=== PATIENT | female | born 1995 | race Hispanic/Latino ===

== ENCOUNTER 2020-10-31 18:01 | Observation (INO) | payer BC, MEDICAID ==
[2020-10-31] MEDS ORDERED: SODIUM CHLORIDE 0.9% 1000 ML 1,000 ML IV ONE ×3 (19:02→23:54)
[2020-10-31 19:36] LABS: Basophils % (Auto) 0.2 % (0.0-1.8); Eosinophils % (Auto) 0.3 % (0.0-4.3); Hematocrit 40.6 % (30.3-42.9); Hemoglobin 13.8 gm/dl (10.1-14.3); Lymphocytes # (Auto) 1.6 K/mm3 (1.2-5.4); Lymphocytes % (Auto) 19.6 % (13.4-35.0); Mean Corpuscular HGB Conc 34 % (30-34); Mean Corpuscular Volume 84 fl (79-97); Monocytes # (Auto) 0.6 K/mm3 (0.0-0.8); Monocytes % (Auto) 7.5 % (0.0-7.3); Platelet Count 265 K/mm3 (140-440); Red Blood Count 4.86 M/mm3 (3.65-5.03); Red Cell Distribution Width 14.1 % (13.2-15.2)
[2020-10-31 19:48] LABS: INR 1.08 (0.87-1.13)
[2020-10-31 19:49] LABS: Partial Thromboplastin Time 28.3 Sec. (24.2-36.6)
[2020-10-31 19:59] LABS: Alanine Aminotransferase 14 units/L (7-56); Albumin 3.8 g/dL (3.9-5); Blood Urea Nitrogen 13 mg/dL (7-17); Calcium 8.7 mg/dL (8.4-10.2); Hemolysis Index 31
--- NOTE | 2020-10-31 20:13 | Emergency Department Report ---
History of Present Illness - General Chief Complaint: Psych Stated Complaint: OVERDOSE Time Seen by Provider: 10/31/20 18:46 Source: EMS Mode of arrival: Ambulatory Limitations: No Limitations - History of Present Illness Initial Comments: 25-year-old female presents to ED following intentional overdose. Patient was found by family members and apparently reported that this was a suicide attempt. 4 empty bottles found. Patient reportedly took medications that were filled on yesterday, 10/30/2020: Seroquel 400 mg x 30 tabs (bottle is empty); Klonopin 1 mg x 30 tabs (bottle is empty); Vraylar 3 mg x 30 tabs (1 tablet remaining); Celexa 40 mg x 30 tabs (bottle is empty). Patient is lethargic. Patient was given Narcan 2 mg by EMS. MD Complaint: intentional overdose -: unknown Intent: suicide attempt How Overdose Was Discovered: other (found by family) Treatments Prior to Arrival: narcan - Related Data Previous Rx's Medication Instructions Recorded Last Taken Type Ondansetron [Zofran Odt] 8 mg PO TID PRN #10 tab.rapdis 01/18/15 Unknown Rx Allergies Allergy/AdvReac Type Severity Reaction Status Date / Time latex AdvReac Itching Verified 08/07/13 15:54 ED Review of Systems ROS: Stated complaint: OVERDOSE Other details as noted in HPI Comment: Unobtainable due to pts medical conditions ED Past Medical Hx - Past Medical History Previous Medical History?: Yes Hx Hypertension: No Hx Diabetes: No Hx Deep Vein Thrombosis: No Hx Renal Disease: No Hx Sickle Cell Disease: No Hx Seizures: No Hx Psychiatric Treatment: Yes (depression) Hx Asthma: No Hx HIV: No Additional medical history: eczema, IV drug abuse - Surgical History Past Surgical History?: No - Social History Smoking Status: Unknown if ever smoked Substance Use Type: Other - Medications Home Medications: Home Medications Medication Instructions Recorded Confirmed Last Taken Type Ondansetron [Zofran Odt] 8 mg PO TID PRN #10 tab.rapdis 01/18/15 Unknown Rx ED Physical Exam - General Limitations: No Limitations General appearance: lethargic - Head Head exam: Present: atraumatic, normocephalic - Eye Eye exam: Present: normal appearance Pupils: Present: other (Pinpoint bilaterally) - ENT ENT exam: Present: mucous membranes moist - Neck Neck exam: Present: normal inspection - Respiratory Respiratory exam: Present: normal lung sounds bilaterally. Absent: respiratory distress - Cardiovascular Cardiovascular Exam: Present: regular rate, normal rhythm - GI/Abdominal GI/Abdominal exam: Present: soft. Absent: distended, tenderness - Extremities Exam Extremities exam: Present: normal inspection - Neurological Exam Neurological exam: Present: other (moves all four extremities; does not follow commands; mumbles a few words such as "Leave me alone") - Skin Skin exam: Present: warm, dry, intact, normal color ED Course Vital Signs 10/31/20 10/31/20 10/31/20 18:38 19:00 19:15 Temperature 98.7 F Pulse Rate 88 83 79 Respiratory 18 11 L 12 Rate Blood Pressure 126/66 95/53 Blood Pressure 128/66 [Right] O2 Sat by Pulse 99 100 100 Oximetry 10/31/20 10/31/20 10/31/20 19:31 19:45 20:00 Temperature Pulse Rate 85 82 81 Respiratory 14 12 12 Rate Blood Pressure 106/74 95/53 98/64 Blood Pressure [Right] O2 Sat by Pulse 100 100 100 Oximetry 10/31/20 10/31/20 10/31/20 20:23 20:31 20:45 Temperature Pulse Rate 83 82 Respiratory 12 14 Rate Blood Pressure 98/64 98/64 98/64 Blood Pressure [Right] O2 Sat by Pulse 100 100 100 Oximetry 10/31/20 10/31/20 10/31/20 21:00 21:15 21:31 Temperature Pulse Rate 79 79 81 Respiratory 11 L 16 12 Rate Blood Pressure 101/62 101/62 88/57 Blood Pressure [Right] O2 Sat by Pulse 100 100 100 Oximetry 10/31/20 10/31/20 10/31/20 21:38 21:45 22:00 Temperature 97.3 F L Pulse Rate 79 79 Respiratory 12 12 Rate Blood Pressure 93/54 93/55 Blood Pressure [Right] O2 Sat by Pulse 100 100 Oximetry 10/31/20 10/31/20 10/31/20 22:12 22:15 22:31 Temperature 97.1 F L Pulse Rate 77 77 Respiratory 12 12 Rate Blood Pressure 93/55 88/56 Blood Pressure [Right] O2 Sat by Pulse 100 100 Oximetry 10/31/20 10/31/20 10/31/20 22:45 22:48 23:00 Temperature 97.3 F L Pulse Rate 76 77 Respiratory 11 L 12 Rate Blood Pressure 99/62 95/64 Blood Pressure [Right] O2 Sat by Pulse 100 100 Oximetry 10/31/20 10/31/20 10/31/20 23:15 23:40 23:45 Temperature Pulse Rate 81 81 81 Respiratory 12 11 L 12 Rate Blood Pressure 95/64 100/58 100/58 Blood Pressure [Right] O2 Sat by Pulse 100 100 100 Oximetry - Consultations Consultation #1: 10/31/20 21:15 Poison Control recs: - IV fluids - EKG in 2 hrs; if QRS 110s, may need 1 amp bicarb; want QRS < 100 - add mag level (2.0 is ideal) - temps are important; can develop Serotonin syndrome (temp 1st indication--- if so, fluids and benzos) 10/31/20 23:46 Updated Poison Control magnesium level and repeat EKG 12 hr obs for Vraylar; 8 hr obs for rest of meds that were taken Pt will be medically clear at 6AM ED Medical Decision Making - Lab Data Result diagrams: 10/31/20 19:02 10/31/20 19:02 - EKG Data -: EKG Interpreted by Me EKG shows normal: sinus rhythm, axis, QRS complexes, ST-T waves Rate: normal - EKG Data Interpretation: no acute changes - Radiology Data Radiology results: report reviewed, image reviewed - Medical Decision Making 25-year-old female presents to ED following reported intentional overdose with 4 of her own psychiatric medications. Patient lethargic and encephalopathic thro ughout ED stay. Unable to obtain a clear story from her of what happened. Poison Control was consulted. Labs and EKGs are within normal limits. Temperatures have been taken regularly to monitor for signs of serotonin syndrome. Patient remains afebrile. She requires 12 hours observation from the time she arrived in the ED. Because her mental status is still not at baseline, will admit the patient for observation to hospitalist, Dr. Wharton, for further management. Patient has been placed on a 1013 and mental health assessment has been ordered. Critical Care Time: Yes Critical care time in (mins) excluding proc time.: 35 Critical care attestation.: If time is entered above; I have spent that time in minutes in the direct care of this critically ill patient, excluding procedure time. Critical Care Time: 35 min ED Disposition Clinical Impression: Overdose, Acute encephalopathy Disposition: OP ADMIT IP TO THIS HOSP Is pt being admited?: Yes Condition: Stable Referrals: PRIMARY CARE, [Primary Care Provider] - 3-5 Days Time of Disposition: 00:38
[2020-10-31 20:34] LABS: BUN/Creatinine Ratio 22; Bilirubin,Direct < 0.2 mg/dL (0-0.2)
--- NOTE | 2020-10-31 20:37 | Cat Scan Report ---
CT head/brain wo con INDICATION / CLINICAL INFORMATION: 25 years Female; AMS. TECHNIQUE: Routine CT head without contrast. All CT scans at this location are performed using CT dos e reduction for ALARA by means of automated exposure control. COMPARISON: None. FINDINGS: BRAIN / INTRACRANIAL CONTENTS: The brain parenchyma appears to demonstrate appropriate attenuation. T he ventricular system is within normal limits in size and configuration. There is no clear CT ends of acute intracranial hemorrhage or significant mass effect at. ORBITS: No significant abnormality of visualized orbits. SINUSES / MASTOIDS: No significant abnormality in the visualized paranasal sinuses or mastoid air pastora ls. CRANIOCERVICAL JUNCTION: No significant abnormality. ADDITIONAL FINDINGS: None. IMPRESSION: 1. There is no CT evidence of acute intracranial process. Signer Name: Hong Rios MD Signed: 10/31/2020 8:33 PM Workstation Name: [id number]
[2020-10-31 21:39] LABS: Bacteria,Urine 4+ /HPF (Negative); Bilirubin,Urine NEG (Negative); Blood,Urine LG (Negative); Color,Urine Yellow (Yellow); Mucus,Urine 1+ /HPF; Protein,Urine <15 mg/dL mg/dL (Negative); Urobilinogen,Urine < 2.0 mg/dL (<2.0)
[2020-10-31 21:48] LABS: Benzodiazepines Screen,Urine Negative; Cannabinoid Screen,Urine Negative; Cocaine Screen,Urine Negative; Methadone Screen,Urine Negative; Opiate Screen,Urine Negative
[2020-10-31 22:12] LABS: Amphetamine Screen,Urine PRESUMPTIVE POSITIVE
[2020-11-01] MEDS ORDERED: ONDANSETRON 4 MG/2 ML INJ IV PRN (01:07)
[2020-11-01] MEDS ORDERED: ACETAMINOPHEN 325 MG TAB PO PRN (01:07)
--- NOTE | 2020-11-01 01:21 | History and Physical Report ---
History of Present Illness Date of examination: 11/01/20 Date of admission: 11/01/2020 Chief complaint: Drug overdose History of present illness: 55-year-old white female with known history of depression was brought into the emergency room today with intentional overdose of medications. Patient was found with 4 empty bottles of recently filled medications which included Seroquel 400 mg, Klonopin 1 mg,Vraylar 3 mg, Celexa 40 mg all of which were for 30-day supply. Patient was found to be lethargic and appeared confused. She was said to have been given 2 mg of Narcan by EMS. Most of the history was gotten from the ER staff as patient was unable to provide any history at this time. Poison control was consulted by the ER physician. Recommendation was to monitor patient closely for at least 12 hours and continue on IV fluids. Work-up today, urine drug screen was positive for antiphentermine. EKG and CT scan of the head was unremarkable. Patient is being admitted for intentional drug overdose. She has also been placed on 1013. Past History Past Medical History: other (Depression) Past Surgical History: Other (Unknown) Social history: IV drug use Family history: other (Unknown) Medications and Allergies Allergies Allergy/AdvReac Type Severity Reaction Status Date / Time latex AdvReac Itching Verified 08/07/13 15:54 Home Medications Medication Instructions Recorded Confirmed Last Taken Type Ondansetron [Zofran Odt] 8 mg PO TID PRN #10 tab.rapdis 01/18/15 Unknown Rx Active Meds: Active Medications Acetaminophen (Acetaminophen 325 Mg Tab) 650 mg PO Q4H PRN PRN Reason: Pain MILD(1-3)/Fever >100.5/PATEL Sodium Chloride (Nacl 0.9% 1000 Ml) 1,000 mls @ 125 mls/hr IV DIRECT KADE Ondansetron HCl (Ondansetron 4 Mg/2 Ml Inj) 4 mg IV Q8H PRN PRN Reason: Nausea And Vomiting Sodium Chloride (Sodium Chloride 0.9% 10 Ml Flush Syringe) 10 ml IV BID KADE Sodium Chloride (Sodium Chloride 0.9% 10 Ml Flush Syringe) 10 ml IV PRN PRN PRN Reason: LINE FLUSH Review of Systems ROS unobtainable: due to mental status Exam - Constitutional Vitals: Temp Pulse Resp BP Pulse Ox 97.3 F L 81 12 100/58 100 10/31/20 22:48 10/31/20 23:45 10/31/20 23:45 10/31/20 23:45 10/31/20 23:45 General appearance: Present: no acute distress, well-nourished - EENT Eyes: Present: PERRL, EOM intact. Absent: scleral icterus ENT: clear oral mucosa, dentition normal (11) Results - Labs CBC & Chem 7: 10/31/20 19:02 10/31/20 19:02 Labs: Abnormal lab results 10/31/20 10/31/20 10/31/20 Range/Units 19:02 19:02 Unknown [place] % (Auto) 7.5 H (0.0-7.3) % Seg Neutrophils % 72.4 H (40.0-70.0) % Albumin 3.8 L (3.9-5) g/dL Salicylates < 0.3 L (2.8-20.0) mg/dL Acetaminophen (10.0-30.0) ug/mL 10/31/20 Range/Units Unknown [place] % (Auto) (0.0-7.3) % Seg Neutrophils % (40.0-70.0) % Albumin (3.9-5) g/dL Salicylates (2.8-20.0) mg/dL Acetaminophen 5.0 L (10.0-30.0) ug/mL Assessment and Plan - Patient Problems (1) Overdose Current Visit: Yes Status: Acute Plan to address problem: Patient has taken recently filled medications which included Seroquel, Klonopin, Celexa and Vraylar. We will monitor patient closely. Patient has known history of depression. We will place consult to mental health for evaluation. (2) Acute encephalopathy Current Visit: Yes Status: Acute Plan to address problem: Secondary to drug overdose. Will monitor mental status. (3) DVT prophylaxis Current Visit: Yes Status: Acute Plan to address problem: We will place patient on subcutaneous Lovenox. (4) Full code status Current Visit: Yes Status: Acute Plan to address problem: Patient is a full code.
[2020-11-01] MEDS: SODIUM CHLORIDE 0.9% 1000 ML 1,000 ML IV SCH (04:20)
--- NOTE | 2020-11-01 08:58 | Consultation ---
History of Present Illness - Reason for Consult Consult date: 11/01/20 Reason for consult: MHE Requesting physician: TEE HOLLEY - Chief Complaint Chief complaint: Drug overdose - History of Present Psychiatric Illness Per ED Provider: 25-year-old female presents to ED following intentional overdose. Patient was found by family members and apparently reported that this was a suicide attempt. 4 empty bottles found. Patient reportedly took medications that were filled on yesterday, 10/30/2020: Seroquel 400 mg x 30 tabs (bottle is empty); Klonopin 1 mg x 30 tabs (bottle is empty); Vraylar 3 mg x 30 tabs (1 tablet remaining); Celexa 40 mg x 30 tabs (bottle is empty). Patient is lethargic. Patient was given Narcan 2 mg by EMS. PSYCH HPI Patient presented to the ED with chief complaint of overdose due to suicidal attempt. Patient overdose on all of her medication that was recently filled on of this month. Patient appears completely somnolent and sedated, unable to respond to verbal or physical stimuli at this moment. PAST PSYCHIATRIC HISTORY Diagnoses:n/a Suicide attempts or Self-harm behavior: n/a Prior psychiatric hospitalizations: n/a Substance Abuse history: n/a Previous psychiatric medications tried: yes, in hpi Outpatient treatment: n/a PAST MEDICAL HISTORY:n/a Family Psychiatric History: None reported or documented SOCIAL HISTORY Marital Status:n/a Living Arrangements:n/a Employment Status:n/a Access to guns/weapons: n/a Education: n/a History of Abuse:n/a Legal History: n/a REVIEW OF SYSTEMS ROS cannot be reliably obtained from the patient due to her menttal status MENTAL STATUS EXAMINATION unable to conduct due to mental status Diagnoses: Assessment and Plan - Psychiatric problem (1) Overdose Current Visit: Yes Status: Acute Treatment Plan No medications. MEDICATIONS: Risks, benefits and alternatives of medications discussed with the patient, questions answered and consent obtained from patient. PSYCHOTHERAPY: Supportive psychotherapy provided MEDICAL: Per primary team DELIRIUM PRECAUTIONS: Please re-orient patient frequently, keep lights on during the day, and minimize benzodiazepines and opiates as these medications could worsen patient's confusion. 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 Will attemtp again tomorow. LEGAL STATUS: 1013 FOLLOW-UP: Will follow Thank you for the consult. Please contact with any questions and/or concerns. Medications and Allergies Allergies Allergy/AdvReac Type Severity Reaction Status Date / Time latex AdvReac Itching Verified 08/07/13 15:54 Home Medications Medication Instructions Recorded Confirmed Last Taken Type Ondansetron [Zofran Odt] 8 mg PO TID PRN #10 tab.rapdis 01/18/15 Unknown Rx Active Meds: Active Medications Acetaminophen (Acetaminophen 325 Mg Tab) 650 mg PO Q4H PRN PRN Reason: Pain MILD(1-3)/Fever >100.5/PATEL Enoxaparin Sodium (Enoxaparin 40 Mg/0.4 Ml Inj) 40 mg SUB-Q QDAY@2200 KADE; Protocol Sodium Chloride (Nacl 0.9% 1000 Ml) 1,000 mls @ 125 mls/hr IV DIRECT KADE Last Admin: 11/01/20 04:20 Dose: 125 mls/hr Documented by: Ondansetron HCl (Ondansetron 4 Mg/2 Ml Inj) 4 mg IV Q8H PRN PRN Reason: Nausea And Vomiting Sodium Chloride (Sodium Chloride 0.9% 10 Ml Flush Syringe) 10 ml IV BID KADE Sodium Chloride (Sodium Chloride 0.9% 10 Ml Flush Syringe) 10 ml IV PRN PRN PRN Reason: LINE FLUSH Mental Status Exam - Vital signs Last Vital Signs Temp 96.1 F L 11/01/20 05:14 Pulse 77 11/01/20 06:15 Resp 12 11/01/20 06:15 BP 104/66 11/01/20 06:15 Pulse Ox 100 11/01/20 06:15 Results Result Diagrams: 10/31/20 19:02 10/31/20 19:02 Abnormal lab results 10/31/20 10/31/20 10/31/20 Range/Units 19:02 19:02 Unknown [place] % (Auto) 7.5 H (0.0-7.3) % Seg Neutrophils % 72.4 H (40.0-70.0) % Albumin 3.8 L (3.9-5) g/dL Salicylates < 0.3 L (2.8-20.0) mg/dL Acetaminophen (10.0-30.0) ug/mL 10/31/20 Range/Units Unknown [place] % (Auto) (0.0-7.3) % Seg Neutrophils % (40.0-70.0) % Albumin (3.9-5) g/dL Salicylates (2.8-20.0) mg/dL Acetaminophen 5.0 L (10.0-30.0) ug/mL All other labs normal. Assessment and Plan - Psychiatric problem (1) Overdose Current Visit: Yes Status: Acute
--- NOTE | 2020-11-01 11:33 | Event Note ---
Date: 11/01/20 Patient remains very lethargic although awakens and falls right back to sleep. Remains on restraints. Oxygen saturation is intact and appropriate.
[2020-11-02 05:35] LABS: Basophils % (Auto) 0.1 % (0.0-1.8); Eosinophils % (Auto) 0.2 % (0.0-4.3); Hematocrit 40.5 % (30.3-42.9); Hemoglobin 13.6 gm/dl (10.1-14.3); Lymphocytes # (Auto) 1.5 K/mm3 (1.2-5.4); Lymphocytes % (Auto) 8.1 % (13.4-35.0); Mean Corpuscular HGB Conc 34 % (30-34); Mean Corpuscular Volume 85 fl (79-97); Monocytes % (Auto) 5.4 % (0.0-7.3); Platelet Count 273 K/mm3 (140-440); Red Blood Count 4.79 M/mm3 (3.65-5.03); Red Cell Distribution Width 14.4 % (13.2-15.2)
[2020-11-02 05:40] LABS: INR 1.23 (0.87-1.13)
[2020-11-02 06:13] LABS: BUN/Creatinine Ratio 14; Blood Urea Nitrogen 10 mg/dL (7-17); Hemolysis Index 2
--- NOTE | 2020-11-02 07:34 | Progress Note ---
Assessment and Plan Assessment and plan: 25-year-old white female with known history of depression was brought into the emergency room today with intentional overdose of medications. Patient was found with 4 empty bottles of recently filled medications which included Seroquel 400 mg, Klonopin 1 mg,Vraylar 3 mg, Celexa 40 mg all of which were for 30-day supply. Patient was found to be lethargic and appeared confused. She was said to have been given 2 mg of Narcan by EMS. Most of the history was gotten from the ER staff as patient was unable to provide any history at this time. Poison control was consulted by the ER physician. Recommendation was to monitor patient closely for at least 12 hours and continue on IV fluids. Work-up today, urine drug screen was positive for amphentermine. EKG and CT scan of the head was unremarkable. Patient is being admitted for intentional drug overdose. She has also been placed on 1013. 11/02: Leukocytosis noted. Unknown etiology, ? reactive. Patient also was noted to be Hypothermic, but likely due to being on the Hallway, Warm blanket. Will repeat CBC and await clearance from Psych. Medically she will be cleared for discharge if CBC shows improving Leukocytosis. No clear evidence of aspiration. Hypoglycemia: Encouraged to eat. Monitor. Overdose Current Visit: Yes Status: Acute Plan to address problem: Patient has taken recently filled medications which included Seroquel, Klonopin, Celexa and Vraylar. We will monitor patient closely. Patient has known history of depression. We will place consult to mental health for evaluation. Acute Metabolic Encephalopathy Current Visit: Yes Status: Acute Plan to address problem: Secondary to drug overdose. Will monitor mental status. DVT prophylaxis Current Visit: Yes Status: Acute Plan to address problem: We will place patient on subcutaneous Lovenox. Full code status Current Visit: Yes Status: Acute Plan to address problem: Patient is a full code. History Interval history: Patient seen and examined, no acute distress reported. Awakens on verbal stimuli. Hospitalist Physical - Constitutional Vitals: Temp Pulse Resp BP Pulse Ox 96.1 F L 77 12 104/66 100 11/01/20 05:14 11/01/20 06:15 11/01/20 06:15 11/01/20 06:15 11/01/20 06:15 General appearance: Present: no acute distress, well-nourished - EENT Eyes: Present: PERRL, EOM intact ENT: hearing intact, other (LIP RING IN PLACE) - Neck Neck: Present: supple, normal ROM - Respiratory Respiratory effort: normal Respiratory: bilateral: CTA - Cardiovascular Rhythm: regular Heart Sounds: Present: S1 & S2 - Extremities Extremities: no ischemia, pulses intact, pulses symmetrical, No edema, normal temperature, normal color, Full ROM Peripheral Pulses: within normal limits - Abdominal General gastrointestinal: soft, non-tender, non-distended, normal bowel sounds - Integumentary Integumentary: Present: warm (MULTIPLE TATTOOS) - Psychiatric Psychiatric: appropriate mood/affect, memory intact, cooperative - Neurologic Neurologic: CNII-XII intact, moves all extremities, gait normal Results - Labs CBC & Chem 7: 11/02/20 04:39 11/02/20 04:39 Labs: Laboratory Last Values WBC 18.0 K/mm3 (4.5-11.0) H 11/02/20 04:39 RBC 4.79 M/mm3 (3.65-5.03) 11/02/20 04:39 Hgb 13.6 gm/dl (10.1-14.3) 11/02/20 04:39 Hct 40.5 % (30.3-42.9) 11/02/20 04:39 MCV 85 fl (79-97) 11/02/20 04:39 MCH 28 pg (28-32) 11/02/20 04:39 MCHC 34 % (30-34) 11/02/20 04:39 RDW 14.4 % (13.2-15.2) 11/02/20 04:39 Plt Count 273 K/mm3 (140-440) 11/02/20 04:39 Lymph % (Auto) 8.1 % (13.4-35.0) L 11/02/20 04:39 [place] % (Auto) 5.4 % (0.0-7.3) 11/02/20 04:39 Eos % (Auto) 0.2 % (0.0-4.3) 11/02/20 04:39 Baso % (Auto) 0.1 % (0.0-1.8) 11/02/20 04:39 Lymph # (Auto) 1.5 K/mm3 (1.2-5.4) 11/02/20 04:39 [place] # (Auto) 1.0 K/mm3 (0.0-0.8) H 11/02/20 04:39 Eos # (Auto) 0.0 K/mm3 (0.0-0.4) 11/02/20 04:39 Baso # (Auto) 0.0 K/mm3 (0.0-0.1) 11/02/20 04:39 Seg Neutrophils % 86.2 % (40.0-70.0) H 11/02/20 04:39 Seg Neutrophils # 15.5 K/mm3 (1.8-7.7) H 11/02/20 04:39 PT 15.5 Sec. (12.2-14.9) H 11/02/20 04:39 INR 1.23 (0.87-1.13) H 11/02/20 04:39 APTT 28.3 Sec. (24.2-36.6) 10/31/20 19:02 Sodium 144 mmol/L (137-145) 11/02/20 04:39 Potassium 4.0 mmol/L (3.6-5.0) 11/02/20 04:39 Chloride 109.6 mmol/L (98-107) H 11/02/20 04:39 Carbon Dioxide 19 mmol/L (22-30) L 11/02/20 04:39 Anion Gap 19 mmol/L 11/02/20 04:39 BUN 10 mg/dL (7-17) 11/02/20 04:39 Creatinine 0.7 mg/dL (0.6-1.2) 11/02/20 04:39 Estimated GFR > 60 ml/min 11/02/20 04:39 BUN/Creatinine Ratio 14 % 11/02/20 04:39 Glucose 64 mg/dL (65-100) L 11/02/20 04:39 Calcium 9.0 mg/dL (8.4-10.2) 11/02/20 04:39 Magnesium 2.00 mg/dL (1.7-2.3) 10/31/20 Unknown Total Bilirubin 0.20 mg/dL (0.1-1.2) 10/31/20 19:02 Direct Bilirubin < 0.2 mg/dL (0-0.2) 10/31/20 19:02 Indirect Bilirubin 0.0 mg/dL 10/31/20 19:02 AST 16 units/L (5-40) 10/31/20 19:02 ALT 14 units/L (7-56) 10/31/20 19:02 Alkaline Phosphatase 53 units/L (35-129) 10/31/20 19:02 Total Protein 6.7 g/dL (6.3-8.2) 10/31/20 19:02 Albumin 3.8 g/dL (3.9-5) L 10/31/20 19:02 Albumin/Globulin Ratio 1.3 % 10/31/20 19:02 HCG, Qual Negative (Negative) 10/31/20 Unknown Urine Color Yellow (Yellow) 10/31/20 Unknown Urine Turbidity Slightly-cloudy (Clear) 10/31/20 Unknown Urine pH 6.0 (5.0-7.0) 10/31/20 Unknown Ur Specific [place] 1.013 (1.003-1.030) 10/31/20 Unknown Urine Protein <15 mg/dl mg/dL (Negative) 10/31/20 Unknown Urine Glucose (UA) Neg mg/dL (Negative) 10/31/20 Unknown Urine Ketones 20 mg/dL (Negative) 10/31/20 Unknown Urine Blood Lg (Negative) 10/31/20 Unknown Urine Nitrite Neg (Negative) 10/31/20 Unknown Urine Bilirubin Neg (Negative) 10/31/20 Unknown Urine Urobilinogen < 2.0 mg/dL (<2.0) 10/31/20 Unknown Ur Leukocyte Esterase Neg (Negative) 10/31/20 Unknown Urine WBC (Auto) 2.0 /HPF (0.0-6.0) 10/31/20 Unknown Urine RBC (Auto) 32.0 /HPF (0.0-6.0) 10/31/20 Unknown U Epithel Cells (Auto) < 1.0 /HPF (0-13.0) 10/31/20 Unknown Urine Bacteria (Auto) 4+ /HPF (Negative) 10/31/20 Unknown Urine Mucus 1+ /HPF 10/31/20 Unknown Salicylates < 0.3 mg/dL (2.8-20.0) L 10/31/20 Unknown Urine Opiates Screen Negative 10/31/20 Unknown Urine Methadone Screen Negative 10/31/20 Unknown Acetaminophen 5.0 ug/mL (10.0-30.0) L 10/31/20 Unknown Ur Barbiturates Screen Negative 10/31/20 Unknown Ur Phencyclidine Scrn Negative 10/31/20 Unknown Ur Amphetamines Screen Presumptive positive 10/31/20 Unknown U Benzodiazepines Scrn Negative 10/31/20 Unknown Urine Cocaine Screen Negative 10/31/20 Unknown U Marijuana (THC) Screen Negative 10/31/20 Unknown Drugs of Abuse Note Disclamer 10/31/20 Unknown Plasma/Serum Alcohol < 0.01 % (0-0.07) 10/31/20 Unknown [place]/IV: IV Catheter Type [Left INT / Saline Lock Antecubital] Active Medications - Current Medications Current Medications: Generic Name Dose Route Start Last Admin Trade Name Freq PRN Reason Stop Dose Admin Acetaminophen 650 mg 11/01/20 01:07 Acetaminophen 325 Mg Tab PO Q4H PRN Pain MILD(1-3)/Fever >100.5/PATEL Enoxaparin Sodium 40 mg 11/01/20 22:00 Enoxaparin 40 Mg/0.4 Ml Inj SUB-Q QDAY@2200 KADE Protocol Sodium Chloride 1,000 mls @ 125 mls/hr 11/01/20 01:15 11/01/20 04:20 Nacl 0.9% 1000 Ml IV 125 mls/hr DIRECT KADE Administration Ondansetron HCl 4 mg 11/01/20 01:07 Ondansetron 4 Mg/2 Ml Inj IV Q8H PRN Nausea And Vomiting Sodium Chloride 10 ml 11/01/20 10:00 11/01/20 11:25 Sodium Chloride 0.9% 10 Ml Flush Syringe IV 10 ml BID KADE Administration Sodium Chloride 10 ml 11/01/20 01:07 Sodium Chloride 0.9% 10 Ml Flush Syringe IV PRN PRN LINE FLUSH
--- NOTE | 2020-11-02 12:04 | Consultation ---
History of Present Illness - Reason for Consult Consult date: 11/02/20 Reason for consult: MHE Requesting physician: CHICO FERNANDEZ - Chief Complaint Chief complaint: Drug overdose - History of Present Psychiatric Illness Per ED Provider: 25-year-old female presents to ED following intentional overdose. Patient was found by family members and apparently reported that this was a suicide attempt. 4 empty bottles found. Patient reportedly took medications that were filled on yesterday, 10/30/2020: Seroquel 400 mg x 30 tabs (bottle is empty); Klonopin 1 mg x 30 tabs (bottle is empty); Vraylar 3 mg x 30 tabs (1 tablet remaining); Celexa 40 mg x 30 tabs (bottle is empty). Patient is lethargic. Patient was given Narcan 2 mg by EMS. PSYCH HPI Patient presented to the ED with chief complaint of overdose due to suicidal attempt. Patient overdose on all of her medication that was recently filled on of this month. Attempt was made yesterday to see patient per patient was severely sedated, patient was seen today in the hallway. Patient reports she was being very depressed lately, has been going to a lot of financial issues, lots of trouble with finances, and also report relationship issues which she attributes 100% as her own fault and felt that no one was listening to her so she did this in an attempt to get the intention. Patient reports she has mom and siblings in the [facility], her dad is late, and on the day of incident, she was at home with her boyfriend, mom and kids also used meth on the day of incident. Patient reports feeling sleepy, and regretful after hearing what she had done, she is alert and oriented to hospital but she did not know which hospital she was until I told her. PAST PSYCHIATRIC HISTORY Diagnoses: Major depression, anxiety and PTSD Suicide attempts or Self-harm behavior: Yes Prior psychiatric hospitalizations: Yes Substance Abuse history: Meth, and marijuana Previous psychiatric medications tried: yes, in hpi Outpatient treatment: By primary care provider none psychiatry PAST MEDICAL HISTORY: None reported Family Psychiatric History: None reported or documented SOCIAL HISTORY Marital Status: Single Living Arrangements: rent Employment Status: Employed Access to guns/weapons: None report Education: High school ninth grade History of Abuse: None reported Legal History: yes MENTAL STATUS EXAMINATION General Appearance and Behavior: Age appropriate, good hygiene, wearing appropriate clothes,, good eye contact Cooperation: Participating/engaged, but Guarded Psychomotor Behavior: Psychomotor normal Mood: depressed Affect and affective range: flat Thought Content: hopelessness, helplessness Speech: Normal rate, volume and rythm Intellectual Functioning: Average Suicidal Ideation: SI Homicidal Ideation: Denies HI Impulse Control: Impaired Insight and Judgment: Limited insight and judgment Memory: Normal Attention: Normal Orientation: Alert, oriented Assessment and Plan - Psychiatric problem (1) Overdose Current Visit: Yes Status: Acute (2) MDD (major depressive disorder) Current Visit: Yes Status: Acute Treatment Plan No medications. MEDICATIONS: Risks, benefits and alternatives of medications discussed with the patient, questions answered and consent obtained from patient. PSYCHOTHERAPY: Supportive psychotherapy provided MEDICAL: Per primary team DELIRIUM PRECAUTIONS: Please re-orient patient frequently, keep lights on during the day, and minimize benzodiazepines and opiates as these medications could worsen patient's confusion. BILLING CLINICIAN: DISPOSITION: Do Recommend acute inpatient psychiatric hospitalization at this time. Will attemtp again tomorow. LEGAL STATUS: 1013 FOLLOW-UP: Will follow Thank you for the consult. Please contact with any questions and/or concerns. Medications and Allergies Allergies Allergy/AdvReac Type Severity Reaction Status Date / Time latex AdvReac Itching Verified 08/07/13 15:54 Home Medications Medication Instructions Recorded Confirmed Last Taken Type Ondansetron [Zofran Odt] 8 mg PO TID PRN #10 tab.rapdis 01/18/15 Unknown Rx Active Meds: Active Medications Acetaminophen (Acetaminophen 325 Mg Tab) 650 mg PO Q4H PRN PRN Reason: Pain MILD(1-3)/Fever >100.5/PATEL Enoxaparin Sodium (Enoxaparin 40 Mg/0.4 Ml Inj) 40 mg SUB-Q QDAY@2200 KADE; Protocol Sodium Chloride (Nacl 0.9% 1000 Ml) 1,000 mls @ 125 mls/hr IV DIRECT KADE Last Admin: 11/01/20 04:20 Dose: 125 mls/hr Documented by: Ondansetron HCl (Ondansetron 4 Mg/2 Ml Inj) 4 mg IV Q8H PRN PRN Reason: Nausea And Vomiting Sodium Chloride (Sodium Chloride 0.9% 10 Ml Flush Syringe) 10 ml IV BID KADE Last Admin: 11/01/20 11:25 Dose: 10 ml Documented by: Sodium Chloride (Sodium Chloride 0.9% 10 Ml Flush Syringe) 10 ml IV PRN PRN PRN Reason: LINE FLUSH Mental Status Exam - Vital signs Last Vital Signs Temp 96.1 F L 11/01/20 05:14 Pulse 77 11/01/20 06:15 Resp 12 11/01/20 06:15 BP 104/66 11/01/20 06:15 Pulse Ox 100 11/01/20 06:15 Results Result Diagrams: 11/02/20 04:39 11/02/20 04:39 Abnormal lab results 11/02/20 11/02/20 11/02/20 Range/Units 04:39 04:39 04:39 WBC 18.0 H (4.5-11.0) K/mm3 Lymph % (Auto) 8.1 L (13.4-35.0) % [place] # (Auto) 1.0 H (0.0-0.8) K/mm3 Seg Neutrophils % 86.2 H (40.0-70.0) % Seg Neutrophils # 15.5 H (1.8-7.7) K/mm3 PT 15.5 H (12.2-14.9) Sec. INR 1.23 H (0.87-1.13) Chloride 109.6 H (98-107) mmol/L Carbon Dioxide 19 L (22-30) mmol/L Glucose 64 L (65-100) mg/dL All other labs normal. Assessment and Plan - Psychiatric problem (1) Overdose Current Visit: Yes Status: Acute (2) MDD (major depressive disorder) Current Visit: Yes Status: Acute
[2020-11-02 12:12] LABS: Basophils % (Auto) 0.1 % (0.0-1.8); Eosinophils # (Auto) 0.2 K/mm3 (0.0-0.4); Eosinophils % (Auto) 1.5 % (0.0-4.3); Hematocrit 40.3 % (30.3-42.9); Hemoglobin 13.4 gm/dl (10.1-14.3); Lymphocytes # (Auto) 2.1 K/mm3 (1.2-5.4); Lymphocytes % (Auto) 14.7 % (13.4-35.0); Mean Corpuscular HGB Conc 33 % (30-34); Mean Corpuscular Volume 84 fl (79-97); Monocytes # (Auto) 0.9 K/mm3 (0.0-0.8); Monocytes % (Auto) 6.1 % (0.0-7.3); Platelet Count 271 K/mm3 (140-440); Red Blood Count 4.79 M/mm3 (3.65-5.03); Red Cell Distribution Width 14.1 % (13.2-15.2)
[2020-11-03] MEDS: ENOXAPARIN 40 MG/0.4 ML INJ SUB-Q SCH ×4 (01:31→21:52)
[2020-11-03] MEDS: SODIUM CHLORIDE 0.9% 1000 ML 1,000 ML IV SCH ×2 (01:33→21:51)
[2020-11-03 06:34] LABS: Hematocrit 39.4 % (30.3-42.9); Mean Corpuscular HGB Conc 33 % (30-34); Mean Corpuscular Volume 83 fl (79-97); Platelet Count 293 K/mm3 (140-440); Red Blood Count 4.75 M/mm3 (3.65-5.03); Red Cell Distribution Width 14.3 % (13.2-15.2)
[2020-11-03 06:42] LABS: Blood Urea Nitrogen 7 mg/dL (7-17); Calcium 8.3 mg/dL (8.4-10.2); Hemolysis Index 11
[2020-11-03 06:43] LABS: BUN/Creatinine Ratio 14
--- NOTE | 2020-11-03 10:05 | Progress Note ---
Assessment and Plan Assessment and plan: 25-year-old white female with known history of depression was brought into the emergency room today with intentional overdose of medications. Patient was found with 4 empty bottles of recently filled medications which included Seroquel 400 mg, Klonopin 1 mg,Vraylar 3 mg, Celexa 40 mg all of which were for 30-day supply. Patient was found to be lethargic and appeared confused. She was said to have been given 2 mg of Narcan by EMS. Most of the history was gotten from the ER staff as patient was unable to provide any history at this time. Poison control was consulted by the ER physician. Recommendation was to monitor patient closely for at least 12 hours and continue on IV fluids. Work-up today, urine drug screen was positive for amphentermine. EKG and CT scan of the head was unremarkable. Patient is being admitted for intentional drug overdose. She has also been placed on 1013. 11/02: Leukocytosis noted. Unknown etiology ? reactive. Patient also was noted to be Hypothermic, but likely due to being on the Hallway, Warm blanket. Will repeat CBC and await clearance from Psych. Medically she will be cleared for discharge if CBC shows improving Leukocytosis. No clear evidence of aspiration. 11/03: Clinical stable for discharge to inpatient Psych. Leukocytosis improving likely reactive. Hypoglycemia: Encouraged to eat. Monitor. Overdose Current Visit: Yes Status: Acute Plan to address problem: Patient has taken recently filled medications which included Seroquel, Klonopin, Celexa and Vraylar. We will monitor patient closely. Patient has known history of depression. We will place consult to mental health for evaluation. Acute Metabolic Encephalopathy Current Visit: Yes Status: Acute Plan to address problem: Secondary to drug overdose. Will monitor mental status. DVT prophylaxis Current Visit: Yes Status: Acute Plan to address problem: We will place patient on subcutaneous Lovenox. Full code status Current Visit: Yes Status: Acute Plan to address problem: Patient is a full code. History Interval history: Patient seen and examined, no acute distress reported. Awakens on verbal stimuli. Hospitalist Physical - Constitutional Vitals: Temp Pulse Resp BP Pulse Ox 97.4 F L 79 16 97/41 99 11/03/20 07:45 11/03/20 07:45 11/03/20 08:12 11/03/20 07:45 11/03/20 08:12 General appearance: Present: no acute distress, well-nourished - EENT Eyes: Present: PERRL, EOM intact ENT: hearing intact, clear oral mucosa - Neck Neck: Present: supple, normal ROM - Respiratory Respiratory effort: normal Respiratory: bilateral: CTA - Cardiovascular Rhythm: regular Heart Sounds: Present: S1 & S2, systolic murmur - Extremities Extremities: no ischemia, pulses intact, pulses symmetrical Peripheral Pulses: within normal limits - Abdominal General gastrointestinal: soft, non-tender, non-distended, normal bowel sounds - Integumentary Integumentary: Present: warm (Multiple Tattoos.) - Psychiatric Psychiatric: appropriate mood/affect, intact judgment & insight, memory intact, cooperative - Neurologic Neurologic: CNII-XII intact, moves all extremities - Allied Health Allied health notes reviewed: nursing Results - Labs CBC & Chem 7: 11/03/20 05:39 11/03/20 05:39 Labs: Laboratory Last Values WBC 11.3 K/mm3 (4.5-11.0) H 11/03/20 05:39 RBC 4.75 M/mm3 (3.65-5.03) 11/03/20 05:39 Hgb 13.0 gm/dl (10.1-14.3) 11/03/20 05:39 Hct 39.4 % (30.3-42.9) 11/03/20 05:39 MCV 83 fl (79-97) 11/03/20 05:39 MCH 27 pg (28-32) L 11/03/20 05:39 MCHC 33 % (30-34) 11/03/20 05:39 RDW 14.3 % (13.2-15.2) 11/03/20 05:39 Plt Count 293 K/mm3 (140-440) 11/03/20 05:39 Lymph % (Auto) 14.7 % (13.4-35.0) 11/02/20 11:26 [place] % (Auto) 6.1 % (0.0-7.3) 11/02/20 11:26 Eos % (Auto) 1.5 % (0.0-4.3) 11/02/20 11:26 Baso % (Auto) 0.1 % (0.0-1.8) 11/02/20 11:26 Lymph # (Auto) 2.1 K/mm3 (1.2-5.4) 11/02/20 11:26 [place] # (Auto) 0.9 K/mm3 (0.0-0.8) H 11/02/20 11:26 Eos # (Auto) 0.2 K/mm3 (0.0-0.4) 11/02/20 11:26 Baso # (Auto) 0.0 K/mm3 (0.0-0.1) 11/02/20 11:26 Seg Neutrophils % 77.6 % (40.0-70.0) H 11/02/20 11:26 Seg Neutrophils # 10.9 K/mm3 (1.8-7.7) H 11/02/20 11:26 PT 15.5 Sec. (12.2-14.9) H 11/02/20 04:39 INR 1.23 (0.87-1.13) H 11/02/20 04:39 APTT 28.3 Sec. (24.2-36.6) 10/31/20 19:02 Sodium 142 mmol/L (137-145) 11/03/20 05:39 Potassium 3.8 mmol/L (3.6-5.0) 11/03/20 05:39 Chloride 108.3 mmol/L (98-107) H 11/03/20 05:39 Carbon Dioxide 22 mmol/L (22-30) 11/03/20 05:39 Anion Gap 16 mmol/L 11/03/20 05:39 BUN 7 mg/dL (7-17) 11/03/20 05:39 Creatinine 0.5 mg/dL (0.6-1.2) L 11/03/20 05:39 Estimated GFR > 60 ml/min 11/03/20 05:39 BUN/Creatinine Ratio 14 % 11/03/20 05:39 Glucose 94 mg/dL (65-100) 11/03/20 05:39 Calcium 8.3 mg/dL (8.4-10.2) L 11/03/20 05:39 Magnesium 2.00 mg/dL (1.7-2.3) 10/31/20 Unknown Total Bilirubin 0.20 mg/dL (0.1-1.2) 10/31/20 19:02 Direct Bilirubin < 0.2 mg/dL (0-0.2) 10/31/20 19:02 Indirect Bilirubin 0.0 mg/dL 10/31/20 19:02 AST 16 units/L (5-40) 10/31/20 19:02 ALT 14 units/L (7-56) 10/31/20 19:02 Alkaline Phosphatase 53 units/L (35-129) 10/31/20 19:02 Total Protein 6.7 g/dL (6.3-8.2) 10/31/20 19:02 Albumin 3.8 g/dL (3.9-5) L 10/31/20 19:02 Albumin/Globulin Ratio 1.3 % 10/31/20 19:02 HCG, Qual Negative (Negative) 10/31/20 Unknown Urine Color Yellow (Yellow) 10/31/20 Unknown Urine Turbidity Slightly-cloudy (Clear) 10/31/20 Unknown Urine pH 6.0 (5.0-7.0) 10/31/20 Unknown Ur Specific [place] 1.013 (1.003-1.030) 10/31/20 Unknown Urine Protein <15 mg/dl mg/dL (Negative) 10/31/20 Unknown Urine Glucose (UA) Neg mg/dL (Negative) 10/31/20 Unknown Urine Ketones 20 mg/dL (Negative) 10/31/20 Unknown Urine Blood Lg (Negative) 10/31/20 Unknown Urine Nitrite Neg (Negative) 10/31/20 Unknown Urine Bilirubin Neg (Negative) 10/31/20 Unknown Urine Urobilinogen < 2.0 mg/dL (<2.0) 10/31/20 Unknown Ur Leukocyte Esterase Neg (Negative) 10/31/20 Unknown Urine WBC (Auto) 2.0 /HPF (0.0-6.0) 10/31/20 Unknown Urine RBC (Auto) 32.0 /HPF (0.0-6.0) 10/31/20 Unknown U Epithel Cells (Auto) < 1.0 /HPF (0-13.0) 10/31/20 Unknown Urine Bacteria (Auto) 4+ /HPF (Negative) 10/31/20 Unknown Urine Mucus 1+ /HPF 10/31/20 Unknown Salicylates < 0.3 mg/dL (2.8-20.0) L 10/31/20 Unknown Urine Opiates Screen Negative 10/31/20 Unknown Urine Methadone Screen Negative 10/31/20 Unknown Acetaminophen 5.0 ug/mL (10.0-30.0) L 10/31/20 Unknown Ur Barbiturates Screen Negative 10/31/20 Unknown Ur Phencyclidine Scrn Negative 10/31/20 Unknown Ur Amphetamines Screen Presumptive positive 10/31/20 Unknown U Benzodiazepines Scrn Negative 10/31/20 Unknown Urine Cocaine Screen Negative 10/31/20 Unknown U Marijuana (THC) Screen Negative 10/31/20 Unknown Drugs of Abuse Note Disclamer 10/31/20 Unknown Plasma/Serum Alcohol < 0.01 % (0-0.07) 10/31/20 Unknown Marin/IV: Voiding Method Toilet IV Catheter Type [Left INT / Saline Lock Antecubital] Active Medications - Current Medications Current Medications: Generic Name Dose Route Start Last Admin Trade Name Freq PRN Reason Stop Dose Admin Acetaminophen 650 mg 11/01/20 01:07 Acetaminophen 325 Mg Tab PO Q4H PRN Pain MILD(1-3)/Fever >100.5/PATEL Enoxaparin Sodium 40 mg 11/01/20 22:00 11/03/20 01:34 Enoxaparin 40 Mg/0.4 Ml Inj SUB-Q Not Given QDAY@2200 KADE Protocol Sodium Chloride 1,000 mls @ 125 mls/hr 11/01/20 01:15 11/03/20 01:33 Nacl 0.9% 1000 Ml IV 125 mls/hr DIRECT KADE Administration Ondansetron HCl 4 mg 11/01/20 01:07 Ondansetron 4 Mg/2 Ml Inj IV Q8H PRN Nausea And Vomiting Sodium Chloride 10 ml 11/01/20 10:00 11/03/20 01:32 Sodium Chloride 0.9% 10 Ml Flush Syringe IV 10 ml BID KADE Administration Sodium Chloride 10 ml 11/01/20 01:07 Sodium Chloride 0.9% 10 Ml Flush Syringe IV PRN PRN LINE FLUSH
--- NOTE | 2020-11-03 11:05 | Progress Note ---
Subjective - Reason for Consult Consult date: 11/03/20 Reason for consult: MHE Requesting physician: CHICO FERNANDEZ - Chief Complaint Chief complaint: Psych Progress Patient seen in room this a.m., patient is more alert and oriented compared to previous encounter. Patient reports feeling better today, expresses regret about her previous action, denies having SI thoughts but endorses being sad and feeli ng stupid at the moment. Patient informed due to overdose and SI attempt, she will need to be place in a psych facility for psychotherapy and intervention. MENTAL STATUS EXAMINATION General Appearance and Behavior: Age appropriate, good hygiene, wearing appropriate clothes,, good eye contact Cooperation: Participating/engaged, but Guarded Psychomotor Behavior: Psychomotor normal Mood: depressed Affect and affective range: flat Thought Content: hopelessness, helplessness Speech: Normal rate, volume and rythm Intellectual Functioning: Average Suicidal Ideation: denies Homicidal Ideation: Denies HI Impulse Control: Impaired Insight and Judgment: Limited insight and judgment Memory: Normal Attention: Normal Orientation: Alert, oriented Assessment and Plan - Psychiatric problem (1) Overdose Current Visit: Yes Status: Acute (2) MDD (major depressive disorder) Current Visit: Yes Status: Acute Treatment Plan No medications. MEDICATIONS: Risks, benefits and alternatives of medications discussed with the patient, questions answered and consent obtained from patient. PSYCHOTHERAPY: Supportive psychotherapy provided MEDICAL: Per primary team DELIRIUM PRECAUTIONS: Please re-orient patient frequently, keep lights on during the day, and minimize benzodiazepines and opiates as these medications could worsen patient's confusion. PACU NURSE: DISPOSITION: Do Recommend acute inpatient psychiatric hospitalization at this time. Will attemtp again tomorow. LEGAL STATUS: 1013 FOLLOW-UP: Will follow Thank you for the consult. Please contact with any questions and/or concerns. Mental Status Exam - Vital signs Last Vital Signs Temp 97.4 F L 11/03/20 07:45 Pulse 79 11/03/20 07:45 Resp 16 11/03/20 08:12 BP 97/41 11/03/20 07:45 Pulse Ox 99 11/03/20 08:12 Assessment and Plan - Patient Problems (1) Overdose Current Visit: Yes Status: Acute (2) MDD (major depressive disorder) Current Visit: Yes Status: Acute
[2020-11-04] MEDS: SODIUM CHLORIDE 0.9% 1000 ML 1,000 ML IV SCH (07:33)
--- NOTE | 2020-11-04 09:01 | Progress Note ---
Assessment and Plan Assessment and plan: 25-year-old white female with known history of depression was brought into the emergency room today with intentional overdose of medications. Patient was found with 4 empty bottles of recently filled medications which included Seroquel 400 mg, Klonopin 1 mg,Vraylar 3 mg, Celexa 40 mg all of which were for 30-day supply. Patient was found to be lethargic and appeared confused. She was said to have been given 2 mg of Narcan by EMS. Most of the history was gotten from the ER staff as patient was unable to provide any history at this time. Poison control was consulted by the ER physician. Recommendation was to monitor patient closely for at least 12 hours and continue on IV fluids. Work-up today, urine drug screen was positive for amphentermine. EKG and CT scan of the head was unremarkable. Patient is being admitted for intentional drug overdose. She has also been placed on 1013. --Hypoglycemia: Resolved --Intentional drug overdose Patient has taken recently filled medications which included Seroquel, Klonopin, Celexa and Vraylar. Patient has no new symptoms Continue supportive care Psych following, 1013 status Patient has known history of depression. We will place consult to mental health for evaluation. --History of depression ; Management per psych Continue current medications Suicidal watch/101 --acute Metabolic Encephalopathy present on admission Current Visit: Yes Status: Acute Plan to address problem: Secondary to drug overdose. Will monitor mental status. --DVT prophylaxis Current Visit: Yes Status: Acute Lovenox --Full code status Current Visit: Yes Status: Acute Plan to address problem: Patient is a full code. Closely monitor the patient and adjust management as needed Plan of care reviewed with the patient and her nurse I also talked to the case management 11/02: Leukocytosis noted. Unknown etiology ? reactive. Patient also was noted to be Hypothermic, but likely due to being on the Hallway, Warm blanket. Will repeat CBC and await clearance from Psych. Medically she will be cleared for discharge if CBC shows improving Leukocytosis. No clear evidence of aspiration. 11/03: Clinical stable for discharge to inpatient Psych. Leukocytosis improving likely reactive. 11/04: Medically stable for discharge History Interval history: I have seen and examined the patient at the bedside this morning Patient she feels better No new complaints vital signs noted Hospitalist Physical - Constitutional Vitals: Temp Pulse Resp BP Pulse Ox 98.5 F 86 18 111/70 97 11/04/20 07:37 11/04/20 08:51 11/04/20 07:37 11/04/20 07:37 11/04/20 07:37 General appearance: Present: no acute distress, well-nourished - EENT Eyes: Present: PERRL, EOM intact - Neck Neck: Present: supple, normal ROM - Respiratory Respiratory effort: normal Respiratory: bilateral: diminished, negative: rales, rhonchi, wheezing - Cardiovascular Rhythm: regular Heart Sounds: Present: S1 & S2 - Extremities Extremities: no ischemia, No edema - Abdominal General gastrointestinal: soft, non-tender, non-distended, normal bowel sounds - Integumentary Integumentary: Present: clear, warm - Psychiatric Psychiatric: appropriate mood/affect, cooperative - Neurologic Neurologic: moves all extremities Results - Labs CBC & Chem 7: 11/03/20 05:39 11/03/20 05:39 Labs: Laboratory Last Values WBC 11.3 K/mm3 (4.5-11.0) H 11/03/20 05:39 RBC 4.75 M/mm3 (3.65-5.03) 11/03/20 05:39 Hgb 13.0 gm/dl (10.1-14.3) 11/03/20 05:39 Hct 39.4 % (30.3-42.9) 11/03/20 05:39 MCV 83 fl (79-97) 11/03/20 05:39 MCH 27 pg (28-32) L 11/03/20 05:39 MCHC 33 % (30-34) 11/03/20 05:39 RDW 14.3 % (13.2-15.2) 11/03/20 05:39 Plt Count 293 K/mm3 (140-440) 11/03/20 05:39 Lymph % (Auto) 14.7 % (13.4-35.0) 11/02/20 11:26 [place] % (Auto) 6.1 % (0.0-7.3) 11/02/20 11:26 Eos % (Auto) 1.5 % (0.0-4.3) 11/02/20 11:26 Baso % (Auto) 0.1 % (0.0-1.8) 11/02/20 11:26 Lymph # (Auto) 2.1 K/mm3 (1.2-5.4) 11/02/20 11:26 [place] # (Auto) 0.9 K/mm3 (0.0-0.8) H 11/02/20 11:26 Eos # (Auto) 0.2 K/mm3 (0.0-0.4) 11/02/20 11:26 Baso # (Auto) 0.0 K/mm3 (0.0-0.1) 11/02/20 11:26 Seg Neutrophils % 77.6 % (40.0-70.0) H 11/02/20 11: Seg Neutrophils # 10.9 K/mm3 (1.8-7.7) H 11/02/20 11:26 PT 15.5 Sec. (12.2-14.9) H 11/02/20 04:39 INR 1.23 (0.87-1.13) H 11/02/20 04:39 APTT 28.3 Sec. (24.2-36.6) 10/31/20 19:02 Sodium 142 mmol/L (137-145) 11/03/20 05:39 Potassium 3.8 mmol/L (3.6-5.0) 11/03/20 05:39 Chloride 108.3 mmol/L (98-107) H 11/03/20 05:39 Carbon Dioxide 22 mmol/L (22-30) 11/03/20 05:39 Anion Gap 16 mmol/L 11/03/20 05:39 BUN 7 mg/dL (7-17) 11/03/20 05:39 Creatinine 0.5 mg/dL (0.6-1.2) L 11/03/20 05:39 Estimated GFR > 60 ml/min 11/03/20 05:39 BUN/Creatinine Ratio 14 % 11/03/20 05:39 Glucose 94 mg/dL (65-100) 11/03/20 05:39 Calcium 8.3 mg/dL (8.4-10.2) L 11/03/20 05:39 Magnesium 2.00 mg/dL (1.7-2.3) 10/31/20 Unknown Total Bilirubin 0.20 mg/dL (0.1-1.2) 10/31/20 19:02 Direct Bilirubin < 0.2 mg/dL (0-0.2) 10/31/20 19:02 Indirect Bilirubin 0.0 mg/dL 10/31/20 19:02 AST 16 units/L (5-40) 10/31/20 19:02 ALT 14 units/L (7-56) 10/31/20 19:02 Alkaline Phosphatase 53 units/L (35-129) 10/31/20 19:02 Total Protein 6.7 g/dL (6.3-8.2) 10/31/20 19:02 Albumin 3.8 g/dL (3.9-5) L 10/31/20 19:02 Albumin/Globulin Ratio 1.3 % 10/31/20 19:02 HCG, Qual Negative (Negative) 10/31/20 Unknown Urine Color Yellow (Yellow) 10/31/20 Unknown Urine Turbidity Slightly-cloudy (Clear) 10/31/20 Unknown Urine pH 6.0 (5.0-7.0) 10/31/20 Unknown Ur Specific [place] 1.013 (1.003-1.030) 10/31/20 Unknown Urine Protein <15 mg/dl mg/dL (Negative) 10/31/20 Unknown Urine Glucose (UA) Neg mg/dL (Negative) 10/31/20 Unknown Urine Ketones 20 mg/dL (Negative) 10/31/20 Unknown Urine Blood Lg (Negative) 10/31/20 Unknown Urine Nitrite Neg (Negative) 10/31/20 Unknown Urine Bilirubin Neg (Negative) 10/31/20 Unknown Urine Urobilinogen < 2.0 mg/dL (<2.0) 10/31/20 Unknown Ur Leukocyte Esterase Neg (Negative) 10/31/20 Unknown Urine WBC (Auto) 2.0 /HPF (0.0-6.0) 10/31/20 Unknown Urine RBC (Auto) 32.0 /HPF (0.0-6.0) 10/31/20 Unknown U Epithel Cells (Auto) < 1.0 /HPF (0-13.0) 10/31/20 Unknown Urine Bacteria (Auto) 4+ /HPF (Negative) 10/31/20 Unknown Urine Mucus 1+ /HPF 10/31/20 Unknown Salicylates < 0.3 mg/dL (2.8-20.0) L 10/31/20 Unknown Urine Opiates Screen Negative 10/31/20 Unknown Urine Methadone Screen Negative 10/31/20 Unknown Acetaminophen 5.0 ug/mL (10.0-30.0) L 10/31/20 Unknown Ur Barbiturates Screen Negative 10/31/20 Unknown Ur Phencyclidine Scrn Negative 10/31/20 Unknown Ur Amphetamines Screen Presumptive positive 10/31/20 Unknown U Benzodiazepines Scrn Negative 10/31/20 Unknown Urine Cocaine Screen Negative 10/31/20 Unknown U Marijuana (THC) Screen Negative 10/31/20 Unknown Drugs of Abuse Note Disclamer 10/31/20 Unknown Plasma/Serum Alcohol < 0.01 % (0-0.07) 10/31/20 Unknown [place]/IV: Voiding Method Toilet IV Catheter Type [Left INT / Saline Lock Antecubital] Active Medications - Current Medications Current Medications: Generic Name Dose Route Start Last Admin Trade Name Freq PRN Reason Stop Dose Admin Acetaminophen 650 mg 11/01/20 01:07 Acetaminophen 325 Mg Tab PO Q4H PRN Pain MILD(1-3)/Fever >100.5/PATEL Enoxaparin Sodium 40 mg 11/01/20 22:00 11/03/20 21:52 Enoxaparin 40 Mg/0.4 Ml Inj SUB-Q Not Given QDAY@2200 [facility] Protocol Sodium Chloride 1,000 mls @ 125 mls/hr 11/01/20 01:15 11/04/20 07:33 Nacl 0.9% 1000 Ml IV 125 mls/hr DIRECT KADE Administration Ondansetron HCl 4 mg 11/01/20 01:07 Ondansetron 4 Mg/2 Ml Inj IV Q8H PRN Nausea And Vomiting Sodium Chloride 10 ml 11/01/20 10:00 11/03/20 21:51 Sodium Chloride 0.9% 10 Ml Flush Syringe IV 10 ml BID KADE Administration Sodium Chloride 10 ml 11/01/20 01:07 11/03/20 11:19 Sodium Chloride 0.9% 10 Ml Flush Syringe IV 10 ml PRN PRN Administration LINE FLUSH
--- NOTE | 2020-11-04 10:35 | Progress Note ---
Subjective - Reason for Consult Consult date: 11/04/20 Reason for consult: MHE Requesting physician: LOREN JEFFERY - Chief Complaint Chief complaint: Psych Progress Patient seen in room this a.m., patient appears more self groomed today, she reports she had been talking to mom since she got to hospital and Collateral: I spoke with mom, mom says patient has been going off a lot at home, she has 2 young kids she is not paying attention too, she screams, wishing people , does not take her medications and still goes off to take drugs and she feels patient cant come to her home yet and needs inpatient intervention. MENTAL STATUS EXAMINATION General Appearance and Behavior: Age appropriate, good hygiene, wearing appropriate clothes,, good eye contact Cooperation: Participating/engaged, but Guarded Psychomotor Behavior: Psychomotor normal Mood: depressed Affect and affective range: flat Thought Content: hopelessness, helplessness Speech: Normal rate, volume and rythm Intellectual Functioning: Average Suicidal Ideation: denies Homicidal Ideation: Denies HI Impulse Control: Impaired Insight and Judgment: Limited insight and judgment Memory: Normal Attention: Normal Orientation: Alert, oriented Assessment and Plan - Psychiatric problem (1) Overdose Current Visit: Yes Status: Acute (2) MDD (major depressive disorder) Current Visit: Yes Status: Acute Treatment Plan Started patient on IV deparkote MEDICATIONS: Risks, benefits and alternatives of medications discussed with the patient, questions answered and consent obtained from patient. PSYCHOTHERAPY: Supportive psychotherapy provided MEDICAL: Per primary team DELIRIUM PRECAUTIONS: Please re-orient patient frequently, keep lights on during the day, and minimize benzodiazepines and opiates as these medications could worsen patient's confusion. 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 Will attemtp again tomorow. LEGAL STATUS: 1013 FOLLOW-UP: Will follow Thank you for the consult. Please contact with any questions and/or concerns. Mental Status Exam - Vital signs Last Vital Signs Temp 98.5 F 11/04/20 07:37 Pulse 86 11/04/20 08:51 Resp 18 11/04/20 07:37 BP 111/70 11/04/20 07:37 Pulse Ox 97 11/04/20 07:37 Assessment and Plan - Patient Problems (1) Overdose Current Visit: Yes Status: Acute (2) MDD (major depressive disorder) Current Visit: Yes Status: Acute
[2020-11-04] MEDS ORDERED: DIVALPROEX DR 500 MG TAB PO ONE (14:46)
[2020-11-04] MEDS ORDERED: NEOMY 3.5 MG/BACIT 400 UNITS/POLY B 5000 UNITS OINT 15 GM TP PRN (15:00)
[2020-11-04] MEDS: DIVALPROEX DR 500 MG TAB PO SCH (21:32)
[2020-11-04] MEDS: ENOXAPARIN 40 MG/0.4 ML INJ SUB-Q SCH (21:33)
[2020-11-04] MEDS ORDERED: VALPROATE SODIUM 500 MG in SODIUM CHLORIDE 0.9% 100 ML IV SCH (22:00)
--- NOTE | 2020-11-05 10:09 | Progress Note ---
Subjective - Reason for Consult Consult date: 11/05/20 Reason for consult: MHE Requesting physician: LOREN JEFFERY - Chief Complaint Chief complaint: Psych Progress Patient seen in room this a.m., patient reports she had been caring for herself, I informed patient about my discussion with her mom, her moms concerns and reported behavior at home for the past few days, patient became very tearful, states mom had also informed her, she reports she had been staying in hotel due to drugs and yes she been quite irritated and disruptive at home verbally but she does not want her kids taken from her, she wants to be better and would do anything or any program we recommend to get her better only if shes allowed to be discharged and be with her family again. MENTAL STATUS EXAMINATION General Appearance and Behavior: Age appropriate, good hygiene, wearing appropriate clothes,, good eye contact Cooperation: Participating/engaged, but Guarded Psychomotor Behavior: Psychomotor normal Mood: depressed Affect and affective range: flat Thought Content: hopelessness, helplessness Speech: Normal rate, volume and rythm Intellectual Functioning: Average Suicidal Ideation: denies Homicidal Ideation: Denies HI Impulse Control: Impaired Insight and Judgment: Limited insight and judgment Memory: Normal Attention: Normal Orientation: Alert, oriented Assessment and Plan - Psychiatric problem (1) Overdose Current Visit: Yes Status: Acute (2) MDD (major depressive disorder) Current Visit: Yes Status: Acute Treatment Plan Patient is off NPO orders, will restart home meds without benzos MEDICATIONS: Risks, benefits and alternatives of medications discussed with the patient, questions answered and consent obtained from patient. PSYCHOTHERAPY: Supportive psychotherapy provided MEDICAL: Per primary team DELIRIUM PRECAUTIONS: Please re-orient patient frequently, keep lights on during the day, and minimize benzodiazepines and opiates as these medications could worsen patient's confusion. 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 Will attemtp again tomorow. LEGAL STATUS: 1013 FOLLOW-UP: Will follow Thank you for the consult. Please contact with any questions and/or concerns. Mental Status Exam - Vital signs Last Vital Signs Temp 98.2 F 11/05/20 07:56 Pulse 81 11/05/20 08:53 Resp 17 11/05/20 07:56 BP 121/73 11/05/20 07:56 Pulse Ox 99 11/05/20 07:56 Assessment and Plan - Patient Problems (1) Overdose Current Visit: Yes Status: Acute (2) MDD (major depressive disorder) Current Visit: Yes Status: Acute
[2020-11-05] MEDS: DIVALPROEX DR 500 MG TAB PO SCH (10:20)
[2020-11-05] MEDS ORDERED: CITALOPRAM 20 MG TAB PO SCH (11:00)
[2020-11-05 11:28] VITALS: BP 116/66
--- NOTE | 2020-11-05 12:38 | Progress Note ---
Assessment and Plan Assessment and plan: 25-year-old white female with known history of depression was brought into the emergency room today with intentional overdose of medications. Patient was found with 4 empty bottles of recently filled medications which included Seroquel 400 mg, Klonopin 1 mg,Vraylar 3 mg, Celexa 40 mg all of which were for 30-day supply. Patient was found to be lethargic and appeared confused. She was said to have been given 2 mg of Narcan by EMS. Most of the history was gotten from the ER staff as patient was unable to provide any history at this time. Poison control was consulted by the ER physician. Recommendation was to monitor patient closely for at least 12 hours and continue on IV fluids. Work-up today, urine drug screen was positive for amphentermine. EKG and CT scan of the head was unremarkable. Patient is being admitted for intentional drug overdose. She has also been placed on 1013. --Hypoglycemia: Resolved --Intentional drug overdose Patient has taken recently filled medications which included Seroquel, Klonopin, Celexa and Vraylar. Patient has no new symptoms Continue supportive care Psych following, 1013 status Patient has known history of depression. We will place consult to mental health for evaluation. --History of depression ; Management per psych Continue current medications Suicidal watch/101 --acute Metabolic Encephalopathy present on admission Current Visit: Yes Status: Acute Plan to address problem: Secondary to drug overdose. Will monitor mental status. --DVT prophylaxis Current Visit: Yes Status: Acute Lovenox --Full code status Current Visit: Yes Status: Acute Plan to address problem: Patient is a full code. Closely monitor the patient and adjust management as needed Plan of care reviewed with the patient and her nurse I also talked to the case management 11/02: Leukocytosis noted. Unknown etiology ? reactive. Patient also was noted to be Hypothermic, but likely due to being on the Hallway, Warm blanket. Will repeat CBC and await clearance from Psych. Medically she will be cleared for discharge if CBC shows improving Leukocytosis. No clear evidence of aspiration. 11/03: Clinical stable for discharge to inpatient Psych. Leukocytosis improving likely reactive. 11/04: Medically stable for discharge Hospitalist Physical - Constitutional Vitals: Temp Pulse Resp BP Pulse Ox 98.4 F 89 17 116/66 98 11/05/20 11:26 11/05/20 11:26 11/05/20 11:26 11/05/20 11:26 11/05/20 11:26 General appearance: Present: no acute distress, well-nourished Results - Labs CBC & Chem 7: 11/03/20 05:39 11/03/20 05:39 Labs: Laboratory Last Values WBC 11.3 K/mm3 (4.5-11.0) H 11/03/20 05:39 RBC 4.75 M/mm3 (3.65-5.03) 11/03/20 05:39 Hgb 13.0 gm/dl (10.1-14.3) 11/03/20 05:39 Hct 39.4 % (30.3-42.9) 11/03/20 05:39 MCV 83 fl (79-97) 11/03/20 05:39 MCH 27 pg (28-32) L 11/03/20 05:39 MCHC 33 % (30-34) 11/03/20 05:39 RDW 14.3 % (13.2-15.2) 11/03/20 05:39 Plt Count 293 K/mm3 (140-440) 11/03/20 05:39 Lymph % (Auto) 14.7 % (13.4-35.0) 11/02/20 11:26 Wheeler % (Auto) 6.1 % (0.0-7.3) 11/02/20 11:26 Eos % (Auto) 1.5 % (0.0-4.3) 11/02/20 11:26 Baso % (Auto) 0.1 % (0.0-1.8) 11/02/20 11:26 Lymph # (Auto) 2.1 K/mm3 (1.2-5.4) 11/02/20 11:26 Wheeler # (Auto) 0.9 K/mm3 (0.0-0.8) H 11/02/20 11:26 Eos # (Auto) 0.2 K/mm3 (0.0-0.4) 11/02/20 11:26 Baso # (Auto) 0.0 K/mm3 (0.0-0.1) 11/02/20 11:26 Seg Neutrophils % 77.6 % (40.0-70.0) H 11/02/20 11:26 Seg Neutrophils # 10.9 K/mm3 (1.8-7.7) H 11/02/20 11:26 PT 15.5 Sec. (12.2-14.9) H 11/02/20 04:39 INR 1.23 (0.87-1.13) H 11/02/20 04:39 APTT 28.3 Sec. (24.2-36.6) 10/31/20 19:02 Sodium 142 mmol/L (137-145) 11/03/20 05:39 Potassium 3.8 mmol/L (3.6-5.0) 11/03/20 05:39 Chloride 108.3 mmol/L (98-107) H 11/03/20 05:39 Carbon Dioxide 22 mmol/L (22-30) 11/03/20 05:39 Anion Gap 16 mmol/L 11/03/20 05:39 BUN 7 mg/dL (7-17) 11/03/20 05:39 Creatinine 0.5 mg/dL (0.6-1.2) L 11/03/20 05:39 Estimated GFR > 60 ml/min 11/03/20 05:39 BUN/Creatinine Ratio 14 % 11/03/20 05:39 Glucose 94 mg/dL (65-100) 11/03/20 05:39 Calcium 8.3 mg/dL (8.4-10.2) L 11/03/20 05:39 Magnesium 2.00 mg/dL (1.7-2.3) 10/31/20 Unknown Total Bilirubin 0.20 mg/dL (0.1-1.2) 10/31/20 19:02 Direct Bilirubin < 0.2 mg/dL (0-0.2) 10/31/20 19:02 Indirect Bilirubin 0.0 mg/dL 10/31/20 19:02 AST 16 units/L (5-40) 10/31/20 19:02 ALT 14 units/L (7-56) 10/31/20 19:02 Alkaline Phosphatase 53 units/L (35-129) 10/31/20 19:02 Total Protein 6.7 g/dL (6.3-8.2) 10/31/20 19:02 Albumin 3.8 g/dL (3.9-5) L 10/31/20 19:02 Albumin/Globulin Ratio 1.3 % 10/31/20 19:02 HCG, Qual Negative (Negative) 10/31/20 Unknown Urine Color Yellow (Yellow) 10/31/20 Unknown Urine Turbidity Slightly-cloudy (Clear) 10/31/20 Unknown Urine pH 6.0 (5.0-7.0) 10/31/20 Unknown Ur Specific [place] 1.013 (1.003-1.030) 10/31/20 Unknown Urine Protein <15 mg/dl mg/dL (Negative) 10/31/20 Unknown Urine Glucose (UA) Neg mg/dL (Negative) 10/31/20 Unknown Urine Ketones 20 mg/dL (Negative) 10/31/20 Unknown Urine Blood Lg (Negative) 10/31/20 Unknown Urine Nitrite Neg (Negative) 10/31/20 Unknown Urine Bilirubin Neg (Negative) 10/31/20 Unknown Urine Urobilinogen < 2.0 mg/dL (<2.0) 10/31/20 Unknown Ur Leukocyte Esterase Neg (Negative) 10/31/20 Unknown Urine WBC (Auto) 2.0 /HPF (0.0-6.0) 10/31/20 Unknown Urine RBC (Auto) 32.0 /HPF (0.0-6.0) 10/31/20 Unknown U Epithel Cells (Auto) < 1.0 /HPF (0-13.0) 10/31/20 Unknown Urine Bacteria (Auto) 4+ /HPF (Negative) 10/31/20 Unknown Urine Mucus 1+ /HPF 10/31/20 Unknown Salicylates < 0.3 mg/dL (2.8-20.0) L 10/31/20 Unknown Urine Opiates Screen Negative 10/31/20 Unknown Urine Methadone Screen Negative 10/31/20 Unknown Acetaminophen 5.0 ug/mL (10.0-30.0) L 10/31/20 Unknown Ur Barbiturates Screen Negative 10/31/20 Unknown Ur Phencyclidine Scrn Negative 10/31/20 Unknown Ur Amphetamines Screen Presumptive positive 10/31/20 Unknown U Benzodiazepines Scrn Negative 10/31/20 Unknown Urine Cocaine Screen Negative 10/31/20 Unknown U Marijuana (THC) Screen Negative 10/31/20 Unknown Drugs of Abuse Note Disclamer 10/31/20 Unknown Plasma/Serum Alcohol < 0.01 % (0-0.07) 10/31/20 Unknown Marin/IV: Voiding Method Toilet IV Catheter Type [Left INT / Saline Lock Antecubital] Active Medications - Current Medications Current Medications: Generic Name Dose Route Start Last Admin Trade Name Freq PRN Reason Stop Dose Admin Acetaminophen 650 mg 11/01/20 01:07 11/04/20 14:48 Acetaminophen 325 Mg Tab PO 650 mg Q4H PRN Administration Pain MILD(1-3)/Fever >100.5/PATEL Citalopram Hydrobromide 40 mg 11/05/20 11:00 Citalopram 20 Mg Tab PO QDAY KADE Divalproex Sodium 500 mg 11/04/20 22:00 11/05/20 10:[address] 500 Mg Tab PO 500 mg BID KADE Administration Enoxaparin Sodium 40 mg 11/01/20 22:00 11/04/20 21:33 Enoxaparin 40 Mg/0.4 Ml Inj SUB-Q 40 mg QDAY@2200 [facility] Administration Protocol Hydroxyzine Pamoate 50 mg 11/05/20 11:00 Hydroxyzine Pamoate 50 Mg Cap PO Q6H PRN Anxiety Neomycin/Polymyxin/Bacitracin 1 applic 11/04/20 15:00 Neomy 3.5 Mg/Bacit 400 Units/Poly B 5000 Units Oint 15 Gm TP TID PRN Skin Irritation Ondansetron HCl 4 mg 11/01/20 01:07 Ondansetron 4 Mg/2 Ml Inj IV Q8H PRN Nausea And Vomiting Quetiapine Fumarate 400 mg 11/05/20 22:00 Quetiapine 200 Mg Tab PO QHS KADE Sodium Chloride 10 ml 11/01/20 10:00 11/05/20 10:20 Sodium Chloride 0.9% 10 Ml Flush Syringe IV 10 ml BID KADE Administration Sodium Chloride 10 ml 11/01/20 01:07 11/03/20 11:19 Sodium Chloride 0.9% 10 Ml Flush Syringe IV 10 ml PRN PRN Administration LINE FLUSH Nutrition/Malnutrition Assess - Dietary Evaluation Nutrition/Malnutrition Findings: Nutrition Notes Start: 11/04/20 12:29 Freq: Status: Active Protocol: Document 11/04/20 12:29 LM (Rec: 11/04/20 12:47 LM [id number]) Nutrition Notes Need for 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 RN screen for new DM, difficulty chewing , and pt receiving TF. Pt ate most of breakfast. 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 Pt reported 100lb wt loss in 8 months due to stress and not on medications that cause her to gain wt. Pt stated her UBW is 160-165 ln. Pt currently weighs 189 lb per chart. Pt does not have DM or TF. #1 Nutrition Diagnosis No nutrition diagnosis at this time Nutrition Intervention Add Supplement/Snack (indicate name/kcal Ensure Enlive daily /protein ) Provides kCal: 350 Provides Protein (gm) 20 Follow-Up By: 11/06/20 Additional Comments F/U for stable intakes, ONS tolerance/need
--- NOTE | 2020-11-05 12:42 | Discharge Summary ---
Providers - Providers Date of Admission: 11/01/20 00:39 Date of discharge: 11/05/20 Attending physician: LOREN JEFFERY 11/01/20 07:20 Consult to Mental Health [CONS] Routine Reason For Exam: Intentional drug overdose,possible suicide attempt Primary care physician: SPECIAL SERVICES COORDINATOR Hospitalization Reason for admission: Intentional drug overdose/metabolic encephalopathy Condition: Fair Pertinent studies: CT head negative for acute abnormality Hospital course: 55-year-old white female with known history of depression was brought into the emergency room today with intentional overdose of medications. Patient was found with 4 empty bottles of recently filled medications which included Seroquel 400 mg, Klonopin 1 mg,Vraylar 3 mg, Celexa 40 mg all of which were for 30-day supply.Patient was found to be lethargic and appeared confused. She was said to have been given 2 mg of Narcan by EMS. Most of the history was gotten from the ER staff as patient was unable to provide any history at this time. Poison control was consulted by the ER physician. Recommendation was to monitor patient closely for at least 12 hours and continue on IV fluids. drug screen was positive for antiphentermine. EKG and CT scan of the head was unremarkable. Patient was admitted placed on 1013 status, evaluated by psych, medications optimized. Psych recommended inpatient psych placement for further evaluation and management. Today patient is comfortable, not in acute distress, Vital signs stable Patient is medically stable for discharge to inpatient psych facility Discharge diagnosis; --Hypoglycemia: Present on admission ,resolved --Intentional drug overdose Patient has taken recently filled medications which included Seroquel, Klonopin, Celexa and Vraylar. Patient has no new symptoms Continue supportive care Psych following, 1013 status Continue current psych medications Patient being transferred to inpatient psych facility today --History of depression ; Management per psych Continue current medications Suicidal watch/1013 --acute Metabolic Encephalopathy present on admission Current Visit: Yes Status: Acute Plan to address problem: Resolved patient is alert awake oriented x3 Patient is medically stable for discharge Disposition: [id number]/[id number] PSY HOSP/PSY UNIT Time spent for discharge: 32 min Core Measure Documentation - Palliative Care Palliative Care/ Comfort Measures: Not Applicable - Core Measures Any of the following diagnoses?: none Exam - Constitutional Vitals: Temp Pulse Resp BP Pulse Ox 98.4 F 89 17 116/66 98 11/05/20 11:26 11/05/20 11:26 11/05/20 11:26 11/05/20 11:26 11/05/20 11:26 General appearance: Present: no acute distress, well-nourished - EENT Eyes: Present: PERRL, EOM intact - Neck Neck: Present: supple, normal ROM - Respiratory Respiratory effort: normal Respiratory: bilateral: diminished, negative: rales, rhonchi, wheezing - Cardiovascular Rhythm: regular Heart Sounds: Present: S1 & S2 - Extremities Extremities: no ischemia, No edema - Abdominal General gastrointestinal: Present: soft, non-tender, non-distended, normal bowel sounds - Integumentary Integumentary: Present: clear, warm - Musculoskeletal Musculoskeletal: strength equal bilaterally - Psychiatric Psychiatric: appropriate mood/affect, cooperative - Neurologic Neurologic: CNII-XII intact, moves all extremities Plan Activity: advance as tolerated, other (1013) Diet: regular Additional Instructions: Patient is being transferred to inpatient psych facility today Follow up with: PRIMARY CAREMD [Primary Care Provider] - 3-5 Days
[2020-11-05] MEDS ORDERED: QUEtiapine 25 MG TAB PO SCH (22:00)
[2020-11-05] MEDS ORDERED: QUEtiapine 200 MG TAB PO SCH (22:00)
== END 2020-11-05 14:00 ==
LOC: ED 18:01 → 4A 11-01 00:39
PROVIDERS: ADMIT Internal Medicine Geriatric Medicine; ATTEND Internal Medicine
DX: T42.4X1A Poisoning by benzodiazepines, accidental (unintentional), initial encounter (principal); G93.40 Encephalopathy, unspecified; F32.9 Major depressive disorder, single episode, unspecified; F41.9 Anxiety disorder, unspecified; F43.10 Post-traumatic stress disorder, unspecified; D72.829 Elevated white blood cell count, unspecified; Z79.899 Other long term (current) drug therapy
CPT/HCPCS: 36415; 70450; 80048; 80076; 80307; 81001; 83735; 84703; 85025; 85027; 85610; 85730; 93005; 96360; 96361; 96372; 99291; A6250; G0378; J1650; J7030; 80320; G0480